=== PATIENT | male | born 1935 | race Caucasian/White ===

== ENCOUNTER 2019-04-11 10:05 | Inpatient (IN) | payer MEDICARE ==
[~2019-04-11] VITALS: Ht 167.6 cm; Wt 106.0 kg
[2019-04-11 10:39] VITALS: BP 109/48; PULSE 68; TEMP 97.4
[2019-04-11] MEDS ORDERED: TYLENOL 500MG500 MG PO (11:08)
[2019-04-11] MEDS ORDERED: ZYLOPRIM 300MG300 MG PO (11:09)
[2019-04-11] MEDS ORDERED: LIPITOR 40MG TA40 MG PO (11:10)
[2019-04-11] MEDS ORDERED: ASPIRIN 81M81 MG/TA2 PO (11:10)
[2019-04-11] MEDS ORDERED: SINEMET 25/101 UDTAB PO (11:14)
[2019-04-11] MEDS ORDERED: COREG 3.123.125 MG/T PO (11:16)
[2019-04-11] MEDS ORDERED: VITAMIND3 5000 PO (11:18)
[2019-04-11] MEDS ORDERED: PLAVIX 75MG TAB75 MG PO (11:19)
[2019-04-11] MEDS ORDERED: ARICEPT10 MG PO (11:20)
[2019-04-11] MEDS ORDERED: LASIX 20MG TABL20 MG PO (11:23)
[2019-04-11] MEDS ORDERED: SYNTHROID 0.0.025 MG PO (11:24)
[2019-04-11] MEDS ORDERED: ZESTRIL2.5 MG PO (11:27)
[2019-04-11] MEDS ORDERED: MAG-OX 400400 MG/TAB PO (11:28)
[2019-04-11] MEDS ORDERED: MULTI VITAMINS1 TAB PO (11:29)
[2019-04-11] MEDS ORDERED: DAZIDOX10 MG PO (11:31)
[2019-04-11] MEDS ORDERED: NEURONTIN100 MG/CAP PO (11:42)
[2019-04-11 18:00] VITALS: BP 107/53; PULSE 57; TEMP 98
--- NOTE | 2019-04-11 19:29 | NUR ---
Patient arrived to room 339 this morning via 4WW with daughter by his side. Patient has his phone set at specific times for his alarm to go off so that he can take his meds on time. Patient's alarm went off at noon and he was found to have taken his own medications that he had brought from home. As soon as this nurse found that out this nurse educated patient on the need to send those meds home with family and that the hospital nurses would be administering his meds while he is here. It took about 15 minutes of discussion for patient to be in agreement with staff administering the med instead of him. This nurse then reviewed medications with patient and times of med administration was discussed in depth with patient. Patient wanted his meds to be given to him promptly at the specific times that he was told to take them. Which were 7 AM, 11 AM, 3 PM, [address] Rudolph was called while this nurse was in the patient room to verify times of his Sinemet in particular and for patient to know that Dr. Rudolph was the one requesting that the meds be given at those specific times. This nurse typed up a med list for patient so that he would know what meds he would be given at what time. He voiced understanding. Patient had a low SBP, see parmeters to hold Coreg if SBP <[address] Villalobos. Patient was very upset that his room was cold so maintenance was called to come check it out. Awaiting for someone to arrive. Gave report to night nurse.
--- NOTE | 2019-04-11 20:00 | NUR ---
Report received from Jacquie BELLE. Patient sits up in recliner. Reports his daughter will be in tonight to continuous pickling line pickler medications. Denies pain at this time. 3 warm blankets given for being cold, Maintenance called by Jacquie to increase room temp, and thermostat turned up in room. [place] box, icecream and pudding given for patient didn't eat much supper do to not liking the food. See admission assessment form.
--- NOTE | 2019-04-11 22:15 | NUR ---
Rests back in recliner with eyes closed. Respirations with ease. Up to the bathroom with SBA and walker and voids. Incontinent of urine through to pants Patient stands to undress but encouraged to sit for safety. Assisted with pullup and pants over feet and patient pulls them up. Patient undresses/dresses upper body without problems.
--- NOTE | 2019-04-12 01:00 | NUR ---
Patient assisted to bed. Up to the bathroom with assist and gait unsteady-safety concern/backs up out of bathroom and doesn't always lock wheelchair brakes. No pain voiced.
--- NOTE | 2019-04-12 03:00 | NUR ---
Patient rests in recliner with eyes closed. Respirations with ease.
[2019-04-12 04:38] VITALS: BP 128/66; PULSE 63; TEMP 97.5
--- NOTE | 2019-04-12 12:00 | NUR ---
SW met with the patient to complete assessment on Rehab. Pt is alert & oriented. He is able to verbally communicate his needs & wants to others. Pt lives at home alone. He lives on the 5th floor of apartment & uses the elevator. There are no steps to enter the apartment building. The bathroom has a step-in shower combo w/ built-in seat, curtain, grab bars, & hand held shower head. The toilet is standard height w/ grab bars. Pt reports walking w/ a 4/w/walker. He reported doing his own ADL's, cooking (microwave), housekeeping, laundry, shopping, drove, medication management, & finance management. Pt reports having a 4/w/walker, s/cane, & electric w/c. Pt receives 1 home delivered meal at noon & has access to housekeeping services if needed. Pt's PCP is BRIDGETT Spencer, of [place] and he receives his medications at [facility], & reports no difficulties obtaining his meds. The pt reports having advanced directives w/ his daughters, designated as DPOA. Pt's goal is to be able to maintain his independence. Will continue to follow & provide support & d/c planning.
[2019-04-12 14:56] VITALS: BP 109/61; PULSE 61; TEMP 98.2
--- NOTE | 2019-04-12 20:45 | NUR ---
Patient was a one SBA with his walker to and from the bathroom today. He set his alarm on his phone for the times of the day that his meds are to be given. He does not want any fluctuation with the timing of these meds. Patient's Coreg was held this evening due to his SBP being less then 110. Patient was educated on the reason for needing to check his blood pressure prior to taking this med to prevent hypotension. He voiced understanding. See order for Heprin TID per Dr. Villalobos. Patient given prn [place] with good effect to help with generalized pain. Patient received a phone ecology teacher from his daughter wallace so his phone is now charged. Patient's meds were taken home by his daughter wallace and his meds in his brown bag were sent with daughter as well. This nurse reported off to the night nurse.
--- NOTE | 2019-04-13 00:53 | NUR ---
PT RESTING IN RECLINER WHERE HE CHOOSES TO SLEEP AT HOME. PT DENIES NEED FOR PAIN MEDICATION EVEN THOUGH HE IS ACHEY ALL OVER. AMB TO BR WITH 4 WHEELED WALKER. ABLE TO MANAGE HYGEINE AND RETURNS TO RECLINER TO MANAGE FOOT OF CHAIR IN ELEVATED POSITION. PT VERY PARTICULAR HOW HE WANTS THINGS. CALL LIGHT IN REACH. CHAIR ALARM ON.
[2019-04-13 06:00] VITALS: BP 112/52; PULSE 54; TEMP 97.6
--- NOTE | 2019-04-13 06:10 | NUR ---
NO FURTHER RESP DISTRESS NOTED. O2 CONTINUED AT 1L NC.
--- NOTE | 2019-04-13 09:30 | NUR ---
Patient sitting up in recliner. A&O, reporting pain from "head to toe" pain medication given when requested. VSS. Waffle padding on recliner. Chair alarm on. No further needs expressed from patient. Call light within reach
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
[2019-04-13 17:14] VITALS: BP 103/50; PULSE 62; TEMP 97.6
--- NOTE | 2019-04-13 17:54 | NUR ---
Patient sitting up in recliner eating dinner. A&O, reporting pain from "head to toes" pain medication given when requested. VSS. Patient standby assist with gait belt and walker. No further needs expressed from patient. Call light within reach
--- NOTE | 2019-04-13 21:00 | NUR ---
PT FLUSHED TOILET. HAD VERY SMALL SOFT FORMED BM. DECLINED BOWEL MEDS.
--- NOTE | 2019-04-13 21:00 | NUR ---
PT RESTING IN RECLINER. PERFERS TO SLEEP IN RECLINER. ENC ELEVATION FEET. MILD EDEMA. AMB TO BR WITH STEADY GAIT WITH WALKER. VOIDED W/O DIFFICULTY. GENERALIZED ACHINESS BUT DENIES NEED FOR PAIN MED. CALL LIGHT IN REACH. CHAIR ALRM SET.
--- NOTE | 2019-04-14 04:45 | NUR ---
SBA TO BR WITH WHEELED WALKER. PT PASSIG FLATUS. FEELS CONSTIPATED. SEE MAR FOR SENOKOT GIVEN. PT HAS BEEN RESTING WELL THIS NIGHT.
[2019-04-14 05:21] VITALS: BP 112/57; PULSE 59; TEMP 97.9
[2019-04-14 09:00] LABS: BASO % 0.4 % (0.0-2.0); EOS # 0.2 (0.0-0.7); EOS % 1.7 % (0-4.0); GRAN # 7.5 (1.4-6.5); GRAN % 76.8 % (42.2-75.2); HEMATOCRIT 37.9 % (42.0-52.0); HEMOGLOBIN 12.6 g/dl (13.5-18.0); LYMPH # 1.3 (1.2-3.4); LYMPH % 12.8 % (20.0-51.0); MEAN CELL VOLUME 95 fl (80.0-100.0); MEAN CORPUSCULAR HEMOGLOBIN 32 pg (27.0-31.0); MEAN CORPUSCULAR HGB CONC 33 g/dl (33.0-37.0); MEAN PLATELET VOLUME 9.2 fl (7.4-10.4); MONO # 0.8 (0.1-0.6); MONO % 7.9 % (1.7-9.3); PLATELET COUNT 185 K/mm3 (130-400); RED BLOOD COUNT 3.99 M/mm3 (4.20-5.60); REDCELL DISTRIBUTION WIDTH-CV 14.2 % (11.5-14.5)
[2019-04-14 09:21] LABS: CREATININE, serum 1.14 (0.66-1.25); MAGNESIUM 1.8 mg/dL (1.6-2.3); POTASSIUM 3.9 mmol/L (3.4-5.0)
--- NOTE | 2019-04-14 10:05 | NUR ---
Report from BARBRA Monson. Pt requested marlee prior to attending group therapy, given, had scant dry bloody drainage to right lateral great toe area of yellow gripper sock, declined bandaid, OT applied new socks. Pt amb with 4WW. To group therapy in wheelchair. Has hx of neuropathy, denies numbness/tingling or dizziness. Dentures in place.
--- NOTE | 2019-04-14 15:37 | NUR ---
Assisted pt with reviewing meds for Tuesday, requested no eggs for breakfast Tuesday and fruit cup instead.
[2019-04-14 17:02] VITALS: BP 107/54; PULSE 57; TEMP 97.4
--- NOTE | 2019-04-14 19:20 | NUR ---
Pt was pleasant and conversational through the shift, meds given timely, report to BARBRA Monson. Pt in recliner with foam mattress over it.
--- NOTE | 2019-04-14 21:00 | NUR ---
PLEANSANT AND COOPERATIVE. SLEEPS IN CHAIR WITH FOAM MATTRESS. PT HAS STEADY WITH WHEELED WALKER. OCCASIONALLY NEEDS REMINDED FOR SAFETY JUDGEMENT. CAHIR ALARM SET. CALL LIGHT IN REACH.
[2019-04-15 03:44] VITALS: BP 132/61; PULSE 59; TEMP 98.3
--- NOTE | 2019-04-15 10:53 | NUR ---
Report from BARBRA Monson. Pt took shower with GAS FITTER to assist, amb room with 4WW SBA, yellow gown and gripper socks in place, denies needing pain meds at this time. Reports concern that his daughter(s?) want him to be in a wheelchair and he disagrees while he is still able to walk. Chair alarm on, call lt in reach.
--- NOTE | 2019-04-15 13:46 | NUR ---
Pt has male visitor.
[2019-04-15 16:35] VITALS: BP 107/53; PULSE 59; TEMP 97.9
--- NOTE | 2019-04-15 19:12 | NUR ---
Family visited this afternoon. Pt requested BG check, 126, asked pt if had trouble with his blood sugars at home, he said he ate a lot of candy yesterday and he wanted to know what it was now. Edu that this is WNL for just having eaten supper at 1700. In recliner with alarm on, call lt in reach, emptied urinal, marlee for pain to R knee, report to BARBRA Monson. Pt pleasant, denies further needs.
--- NOTE | 2019-04-15 21:00 | NUR ---
PT SLEEPS IN RECLINER AT HOME. PAIN MED TAKEN EARLIER HELPED TAKE THE EDGE OFF-" USUAL". PT REPORTS CHRONIC COUGH. HAS LOZENGES AT BEDSIDE. NO RESP DISTRESS. KEEPS FEET ELEVATED. CHAIR ALARM SET. CALL LIGHT IN REACH.
--- NOTE | 2019-04-16 02:08 | NUR ---
PT C/O SORE THROAT. THROAT RED BILAT. NO WHITE STREAKS NOTED. PT REPORTED DAUGHTER HAD A VERY BAD COLD. SEE MAR FOR PAIN MED GIVEN. HOT TEA WITH SUGAR GIVEN.
[2019-04-16 04:12] VITALS: BP 113/51; PULSE 56; TEMP 98.3
--- NOTE | 2019-04-16 08:45 | NUR ---
Patient currently with therapy at this time. Patient was found to be walking with his walker on his own this morning. Patient said that someone turned off his chair alarm so he decided to go to the sink on his own. Patient returned to his recliner and this nurse educated him on the need to use his call light if he needed something. He voiced understanding. This nurse then put on patient's chair alarm. Therapy arrived just follwing patient returning to recliner and is now with PT. Will continue to monitor.
--- NOTE | 2019-04-16 10:46 | NUR ---
Patient has a chronic non-productive cough this morning. He reports that throat is not sore, but has been using cough drops. His throught is slightly red. He has been drinking hot tea and sugar to help his throat. Lungs sound clear this am. Will continue to monitor.
--- NOTE | 2019-04-16 10:52 | NUR ---
Patient currently resting in recliner at this time, call light in reach and chair alarm is on.
--- NOTE | 2019-04-16 13:18 | NUR ---
Visited w/ pt. He stated he has been doing well & feels he is ready to go home soon. Told him of the Team Conference Tuesday. We talked about him learning to take is time & pay attention to what he is doing instead of getting in a hurry.
--- NOTE | 2019-04-16 13:48 | NUR ---
Admission QIM scores were reviewed by the team. Code of 3 chosen for toilet hygiene was determined by team discussion to be the most usual performance for this patient during the assessment period.--Helen Mclaughlin,
--- NOTE | 2019-04-16 13:51 | NUR ---
Patient working with therapy at this time. His two daughter's stopped by this afternoon and one of the daughter's was found transferring her father to the bathroom with out the gait belt and without patient using the call light. Patient had a wet pair of pants. This nurse assisted patient with changing his clothing and placed a pink pad in his underwear to help with the urinary urgency. Will continue to monitor.
--- NOTE | 2019-04-16 16:05 | NUR ---
Trimmed patient's toe nails. Patient tolerated well.
[2019-04-16 16:25] VITALS: BP 103/54; PULSE 79; TEMP 97.9
--- NOTE | 2019-04-16 18:04 | NUR ---
Patient is has a red sore throat, runny nose, a lot of coughing. It is productive with yellow sputum, lungs sound clear at this time. Afebrile today. Reported this to Dr. Montero he said that he notified Dr. Villalobos about this patient and Dr. Villalobos will be seeing him this evening. Will continue to monitor.
--- NOTE | 2019-04-16 20:30 | NUR ---
HS meds all reviewed and given. Sits up in recliner. New meds reviewed. Declines snack.
--- NOTE | 2019-04-16 21:30 | NUR ---
Requests pain med for 3/10 back pain and roxycodone given.
--- NOTE | 2019-04-17 02:18 | NUR ---
Rests in recliner with eyes closed. Respirations with ease.
[2019-04-17 03:40] VITALS: BP 128/52; PULSE 68; TEMP 98.1
--- NOTE | 2019-04-17 09:27 | NUR ---
Patient resting in recliner at this time working with ST. His call light in reach and chair alarm on. Patient having runny nose (clear), productive cough (yellow phlegm). See chest xray results and respiratory nasal swab results. Patient was complaining this morning of not having anyone assist him through the night. This was communicated to leadership, Kimmy this AM. Patient appoligized to this nurse this morning about how he treated this nurse on his first day at [facility]. This nurse was appreciative.
--- NOTE | 2019-04-17 10:07 | NUR ---
Contacted pt's daughter, Deepa, regarding scheduling a pt/family conference for 04/18/19. She asked for it to be before 3:00 pm & inquired if 2:00 or 2:30 would work. It was decided for pt/family conference for 04/18/19 @ 2:00 pm.
--- NOTE | 2019-04-17 12:36 | NUR ---
Called and spoke with Dr. Montero updating him on patient's current condition. Patient coughing constantly with yellow thick drainage. See new orders per Dr. Montero.
--- NOTE | 2019-04-17 13:58 | NUR ---
Patient reporeted that he was not feeling well, so did not want to go to Group Therapy. He is currently resting in recliner vising with his friend in his room. Will continue to monitor.
[2019-04-17 15:47] VITALS: BP 108/54; PULSE 82; TEMP 98.3
[2019-04-17 19:43] VITALS: BP 124/98; PULSE 88; TEMP 99
--- NOTE | 2019-04-17 20:30 | NUR ---
HS med reviewed and given. Dozes off and on in recliner with legs down. Denies pain or needs. Has frequent dry couph.
--- NOTE | 2019-04-17 23:03 | NUR ---
Robutussin given for frequent couph.
--- NOTE | 2019-04-18 | NUR ---
Nurse asks patient if he's couphing less since couph med and states "I think it's because I'm sitting up straighter". Denies needs.
--- NOTE | 2019-04-18 03:00 | NUR ---
Patient has been dozing off and on sitting up in recliner. Up to the bathroom at this time. Denies further needs.
[2019-04-18 05:26] VITALS: BP 113/66; PULSE 66; TEMP 97.6
--- NOTE | 2019-04-18 08:43 | NUR ---
Report from BARBRA Clark. Pt called to toilet, reports having large BM. Robitussin without codeine given- noc RN reports the codeine seemed to have adverse affects. Pt took abx PO with thin liquids, states he doesn't think he can do PT this morning, enc him to do his best. OT here to assist with shower. Pt sitting up in chair.
--- NOTE | 2019-04-18 10:41 | NUR ---
Hot tea with honey for cough
--- NOTE | 2019-04-18 10:56 | NUR ---
Applied desitin cream to freddie buttocks areas of pink-redness. Changed pillow in recliner seat to a seat cushion with gel. Pt appreciative.
--- NOTE | 2019-04-18 14:00 | NUR ---
A Family Conference was conducted with pt & his daughter, Guillermina. Also present was PT, OT, ST, nursing, & [employer] Middle [employer] Teacher/SW. [employer] Teacher/SW started by explaining the purpose of the meeting. The therapists explained how pt has been functioning & has made good progress. The daughter expressed concerns about pt not being in w/c 03/01 & team tried to explain the pros & cons. Pt did comment that he does not want to be in a w/c all the time & feels the education/training he has had has been helpful & plans on using it at home. Informed them of d/c for 04/20/19, w/ recommendations for home health PT/OT. Daughter asked if it could be 04/21/19, which SW & team was fine w/. They asked questions which team answered. Pt is pleased with progress & care he is receiving.
--- NOTE | 2019-04-18 14:07 | NUR ---
Attended Family Meeting with pt and daughter Marii. Questions answered. Marii mentions concerns about the doctor (Klaudia) wanting pt to transition to a wheelchair, however, pt is still mobile with walker and prefers to amb with walker, pt is aware of risks of a fall.
[2019-04-18 16:58] VITALS: BP 107/54; PULSE 66; TEMP 97.3
--- NOTE | 2019-04-18 19:00 | NUR ---
BEDSIDE REPORT IN HU WITH HUMA Suh RN. PT SLEEPING IN CHAIR.
--- NOTE | 2019-04-18 19:25 | NUR ---
Dr. Montero agreeable to stop heparin because pt is mod I in room and family has concerns about hx of falls with hitting head and risk of bleeding. Report to BARBRA Monson. Pt asleep in chair, poor appetite this naveed.
--- NOTE | 2019-04-18 21:28 | NUR ---
NOTIFIED REN CAPPS FOR POSSIBLE SVN TX. NO NEW ORDERS AT THIS TIME. CONTINUE WITH ROBITUSSIN/GUAFENESIN PREVIOUSLY ORDERED.
--- NOTE | 2019-04-18 21:30 | NUR ---
SEEMAR FOR ANDREYSIN GIVEN.
--- NOTE | 2019-04-18 22:18 | NUR ---
PT IS NOW WILLING TO REST IN BED INSTEAD OF RECLINER. AMB TO BR FIRST. TOOK MELATONIN FOR SLEEP. CALL LIGHT IN REACH. MOD I IN ROOM WITH WHEELED WALKER. ENC IF FEELING UNSTEADY AT ALL TO NOTIFY THIS NURSE. PT AGREED.
--- NOTE | 2019-04-19 | NUR ---
PT STILL SLEEPING IN BED ON HIS SIDE. SNORUS RESP.
[2019-04-19 05:34] VITALS: BP 107/89; PULSE 59; TEMP 97.5
--- NOTE | 2019-04-19 08:00 | NUR ---
Bedside report from BARBRA Monson. Pt maia mod I in room with walker, pt in flat mood this morning, pain 3/10 declined pain med prior to therapy, sat bedside for breakfast, stressed importance of calling if needing any assistance, verbalized understanding. Walker in reach. Took pill whole with thin liquid.
--- NOTE | 2019-04-19 09:31 | NUR ---
Spoke w/ pt about obtaining the w/c. Provided him w/ a list of DME providers & he decided on [facility] in [place]. Pt signed choice form. Contacted [facility] & spoke w/ Tressa. Referral made for w/c request. Faxed referral information to [phone].
--- NOTE | 2019-04-19 11:42 | NUR ---
Received voice message from Dorota at [facility]. Returned her call & was informed they would be able to accept the pt. Did tell her the pt is interested in assisted living afterwards.
--- NOTE | 2019-04-19 12:51 | NUR ---
Pt's lunch arrived and he did not want it, room service obtained alt meal. Pt maia mod I in room, linens changed by [employer] per request. Reviewed meal choices and alts for this naveed and through Tuesday lunch, faxed to kitchen.
--- NOTE | 2019-04-19 14:02 | NUR ---
Visited w/ pt about d/c plans for 04/21/19. Reviewed that the team is recommending home health PT/OT. He could not remember who he has used in the past so provided him w/ a list from Medicare.gov. He could still not remember so he is going to talk w/ his daughters & SW will follow up tomorrow. Reviewed the Medicare Rights form & pt signed.
[2019-04-19 17:35] VITALS: BP 125/80; PULSE 76; TEMP 98.1
--- NOTE | 2019-04-19 19:17 | NUR ---
Bedside report to BARBRA Monson. Pt maia mod I in with 4WW. Productive cough cont, robitussin given. Offered hot tea, declined.
--- NOTE | 2019-04-19 19:18 | NUR ---
This afternoon, applied aquacel ag silver gauze and replicare dressing to stage ii freddie buttocks shearing/incont irritation.
--- NOTE | 2019-04-19 20:00 | NUR ---
SHIFT REPORT WITH HUMA Suh RN. PT SITTING IN RECLINER. LESS COUGHING THIS EVENING. OCCASIOANAL YELLOW THICK SPUTUM BUT IMPROVED FROM 24HRS AGO. PT DOES ADMIT TO CHRONIC COUGH ALSO. PT WONDERING IF IT IS A MED SIDE EFFECT. PT SLEEPY TONIGHT. PT MOD I IN ROOM WITH WALKER. DENIES NEEDS AT THIS TIME. CALL LIGHT IN REACH.
[2019-04-20 06:00] VITALS: BP 128/63; PULSE 52; TEMP 98.1
--- NOTE | 2019-04-20 10:03 | NUR ---
Patient resting in recliner at this time working with ST. 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 Patient tolerated well. Patient was educated on the need to transfer himself often from bed to recliner and off load his bottom so that his wounds can heel. He voiced understanding and will do this since he is Independent in his room with a walker. Will continue to monitor.
--- NOTE | 2019-04-20 10:43 | NUR ---
Patient Health Summary, Discharge Summary, and Home meds printed and sent with [facility] to give to [facility] nurse. Follow up appointments reported to [facility] nurse when giving report. Belongings gathered by RN/Jacquie including glasses, hearing aids, $103 chatterjee in bilfold, check book, brown leather analog, IPAD, Cell phone and inspector packager, Ring, dirty clothes out of hamper, all clean clothes, eye drops, 4WW and coat. Patient was transported via wheelchair by [facility] Transportation and BARBRA/Jacquie and seatbelted for ride home to SNF. Patient denied questions.
--- NOTE | 2019-04-20 11:55 | NUR ---
Patient resting in recliner at this time, call light in reach and independent in his room. He is visiting with his daughter at this time. Daughter had requested that he be discharged at 9:00 AM tomorrow morning if possible. This will be communicated to Dr. Montero. Patient denied questions at this time.
--- NOTE | 2019-04-20 12:34 | NUR ---
Visited w/ pt about d/c plans for tomorrow, 04/21/19. Asked if he found out which Home Health agency he used in the past & was told [facility] & would like to request Jennie. Told him that SW will make the referral to [facility] w/ request for Jennie. Asked pt if he had any other questions/concern at this time, which he did not.
--- NOTE | 2019-04-20 13:31 | NUR ---
Contacted [facility] & spoke w/ Livia at [phone]. Referral was made for PT/OT. Did ask per pt's request to have Jennie back. Faxed referral information to [phone].
[2019-04-20] MEDS ORDERED: AMOXICILLIN 8751 TAB PO (14:07)
[2019-04-20] MEDS ORDERED: FLONASE NASAL S16 GM NS (14:09)
[2019-04-20] MEDS ORDERED: ROBITUSSIN DM 105 ML PO (14:09)
--- NOTE | 2019-04-20 15:40 | NUR ---
Patient visiting with daughter this afternoon. Patient given home med list, and Daily task list and both were reviewed with daughter and patient. Both voiced understanding. Dr. Montero updated patient's med list, observed patient Stage II ulcer to his [facility] will schedule an appointment for patient to be seen by wound care. Dr. Montero reported that he would be in early so patient could be discharged by 9 AM in the morning per daughter request. Patient and daughter denied any questions. Will continue to monitor patient.
[2019-04-20 17:04] VITALS: BP 103/44; BP 120/62; PULSE 58; TEMP 98
--- NOTE | 2019-04-20 21:00 | NUR ---
HS med reviewed and given. Reports pain meds helpful. Rests in bed and denies needs at this time.
--- NOTE | 2019-04-21 03:00 | NUR ---
Patient has been resting with eyes closed respirations with ease on hourly round checks.
[2019-04-21 05:29] VITALS: BP 121/69; PULSE 58; TEMP 97.6
--- NOTE | 2019-04-21 05:31 | NUR ---
REPORTS HE'S SLEPT WELL LAST 3 NIGHTS. STATES OCCASIONAL PRODUCTIVE COUPH WITH SMALL AMOUNT YELLOW SPUTUM. PAIN MEDS AND ROBITUSSIN GIVEN. WALKS AROUND ROOM WITH STEADY GAIT AND WALKER.
--- NOTE | 2019-04-21 08:50 | NUR ---
PT HAS BEEN UP AND ROAMING AROUND HIS ROOM GETTING READY TO DISCHARGE. HIS GAIT WITH THE WALKER IS STEADY. HE DRESSED HIMSELF. ATE 100% OF MEAL AND WAS GIVEN HIS AUGMENTIN THIS AM. DAUGHTER IS ON THE WAY TO PICK PT UP. DC INSTRUCTIONS ARE IN THE NOTEBOOK EXCEPT FOR DC INTRUCTIONS. CALL LIGHT IN REACH. NO ALARMS ON
--- NOTE | 2019-04-21 10:31 | NUR ---
WENT OVER DC INSTRUCTIONS WITH FAMILY AND PT. PT SIGNED ALL PAPERWORK. NEITHER PT OR DAUGHTER HAD ANY QUESTIONS. FAXED DC SUMMERY TO PCP. PT WAS TAKEN DOWN TO [facility] IN WHEELCHAIR.
== END 2019-04-21 10:32 | disposition home health service (06) | DRG 948 ==
PROVIDERS: ADMIT Internal Medicine
DX: R53.81 Other malaise (principal); G20 Parkinson's disease; N40.0 Benign prostatic hyperplasia without lower urinary tract symptoms; G89.29 Other chronic pain; M54.9 Dorsalgia, unspecified; I12.9 Hypertensive chronic kidney disease with stage 1 through stage 4 chronic kidney disease, or unspecified chronic kidney disease; F32.9 Major depressive disorder, single episode, unspecified; L89.309 Pressure ulcer of unspecified buttock, unspecified stage; I25.10 Atherosclerotic heart disease of native coronary artery without angina pectoris; N18.9 Chronic kidney disease, unspecified; R13.10 Dysphagia, unspecified; M10.9 Gout, unspecified; G47.33 Obstructive sleep apnea (adult) (pediatric); M19.90 Unspecified osteoarthritis, unspecified site; Z79.82 Long term (current) use of aspirin; Z79.891 Long term (current) use of opiate analgesic; Z91.81 History of falling
CPT/HCPCS: 99222-AI; 99231-AI; 99232-AI; 99233-AI; 99239; A9284; J1644

== ENCOUNTER 2021-12-18 13:22 | Day surgery (SDC) | payer MEDICARE ==
[~2021-12-18] VITALS: Ht 167.6 cm; Wt 102.3 kg
[~2021-12-18 13:22] MED LIST: AMOXICILLIN 8751 TAB PO; ARICEPT10 MG PO; ASPIRIN 81M81 MG/TA2 PO; ATROPINE SULFATE5 ML OP; COREG 3.123.125 MG/T PO; DAZIDOX10 MG PO; FERROUS SU325 MG/TAB PO; FLONASE NASAL S16 GM NS; LASIX 20MG TABL20 MG PO; LIPITOR 40MG TA40 MG PO; MAG-OX 400400 MG/TAB PO; MULTI VITAMINS1 TAB PO; MYRBETR50MG PO; NEURONTIN100 MG/CAP PO; NEURONTIN600 MG/TAB PO; NITROSTAT0.4 MG/TAB SL; OMNICEF 300MG300 MG PO; PLAVIX 75MG TAB75 MG PO; PREDFORTE5ML OP; ROBITUSSIN DM 105 ML PO; SINEMET 25/101 UDTAB PO; SYNTHROID 0.0.025 MG PO; TYLENOL 500MG500 MG PO; VITAMIND3 5000 PO; ZESTRIL2.5 MG PO; ZYLOPRIM 300MG300 MG PO
--- NOTE | 2021-12-18 13:57 | NUR ---
Initial visit; Patient thanked Prepleater for meeting him and offering prayer and encouragement prior to his "Procedure."
[2021-12-18 14:07] VITALS: BP 130/73; PULSE 51; TEMP 97.2
[2021-12-18] MEDS ORDERED: ACIDOPHILIS PO (14:13)
[2021-12-18] MEDS ORDERED: LIQUIFILM TEARS15 ML OU (14:15)
[2021-12-18] MEDS ORDERED: LASIX 40MG TABL40 MG PO (14:24)
[2021-12-18] MEDS ORDERED: ROXICODONE 55 MG/TAB PO (14:27)
[2021-12-18] MEDS ORDERED: PROSCAR 5MG5 MG PO (14:29)
[2021-12-18] MEDS ORDERED: GERI-LANTA 355355 ML PO (14:30)
[2021-12-18] MEDS ORDERED: ATARAX 25MG25 MG/TAB PO (14:31)
[2021-12-18] MEDS ORDERED: LEXAPRO 10MG10 MG PO (14:32)
[2021-12-18] MEDS ORDERED: IMODIUM 2MG CAPS2 MG PO (14:33)
[2021-12-18] MEDS ORDERED: MIRALAX PA17 GM/Dose PO (14:34)
[2021-12-18] MEDS ORDERED: NAMENDA XR 7 PO (14:34)
[2021-12-18] MEDS ORDERED: K-DUR 10 MEQ T10 MEQ PO (14:35)
[2021-12-18] MEDS ORDERED: ZOFRAN 4MG T4 MG/TAB PO (14:35)
[2021-12-18] MEDS ORDERED: VITAMIN C500 MG PO (14:36)
[2021-12-18] MEDS ORDERED: ELIQUIS 5MG PO (14:37)
[2021-12-18 15:00] VITALS: BP 111/62; PULSE 66; TEMP 97.5
--- NOTE | 2021-12-18 15:00 | NUR ---
PATIENT ARRIVES TO ROOM 2 VIA CART. ASSIST TO CHAIR X 2. VITAL SIGNS WNL. PATIENT REQUESTS CRANBERRY JUICE AND A MUFFIN. DAUGHTER AT BEDSIDE. WILL CONTINUE TO MONITOR.
[2021-12-18 15:15] VITALS: BP 127/72; PULSE 53
--- NOTE | 2021-12-18 15:15 | NUR ---
PATIENT IS AWAKE AND ORIENTED. DOCTOR AT BEDSIDE. VITAL SIGNS WNL. DENIES ANY NAUSEA AFTER EATING AND DRINKING. DAUGHTER AT BEDSIDE. WILL CONTINUE TO MONITOR.
[2021-12-18 15:30] VITALS: BP 119/70; PULSE 57
--- NOTE | 2021-12-18 15:30 | NUR ---
PATIENT IS READY FOR DISCHARGE. LAST SET OF VITALS IS WNL. IV REMOVED. DAUGHTER AT BEDSIDE, SHE CALLED [facility] FOR TRANSPORT. DISCHARGE INSTRUCTIONS REVIEWED. WILL DISCHARGE WHEN HIS RIDE ARRIVES.
== END 2021-12-18 15:45 ==
LOC: SDCO 13:22
DX: K29.50 Unspecified chronic gastritis without bleeding (principal); Z79.82 Long term (current) use of aspirin; K21.00 Gastro-esophageal reflux disease with esophagitis, without bleeding; K31.2 Hourglass stricture and stenosis of stomach; Z87.891 Personal history of nicotine dependence
CPT/HCPCS: J2704; J7030